=== PATIENT | male | born 1965 | race Caucasian/White ===

== ENCOUNTER 2018-02-10 06:56 | Observation (INO) | payer OTHER ==
[2018-02-10 08:08] LABS: ADD MAN DIFF? NO
[2018-02-10 08:12] LABS: WHITE BLOOD COUNT 7.9 10^3/ul (4.8-10.8)
[2018-02-10 08:12] LABS: BASOPHIL # 0.1 10^3/ul (0.0-0.1); BASOPHILS % 0.8 % (0.0-2.0); EOSINOPHILS # 0.2 10^3/ul (0.0-0.5); EOSINOPHILS % 2.7 % (0.0-7.0); HEMOGLOBIN 11.8 g/dl (14.0-18.0); LYMPHOCYTES # 3.1 10^3/ul (0.8-2.9); LYMPHOCYTES % 38.5 % (15.0-51.0); MEAN CORPUSCULAR HEMOGLOBIN 29.7 pg (29.0-33.0); MEAN CORPUSCULAR HGB CONC 32.8 g/dl (32.0-37.0); MEAN CORPUSCULAR VOLUME 90.7 fl (82.0-101.0); MEAN PLATELET VOLUME 10.9 fl (7.4-10.4); MONOCYTE # 0.9 10^3/ul (0.3-0.9); MONOCYTES % 11.6 % (0.0-11.0); NEUTROPHIL # 3.7 10^3/ul (1.6-7.5); NEUTROPHILS % 46.3 % (39.0-77.0); PLATELET COUNT 169 10^3/UL (140-415); RED BLOOD COUNT 3.97 10^6/ul (4.70-6.10); RED CELL DISTRIBUTION WIDTH 12.9 % (11.5-14.5)
[2018-02-10 08:28] LABS: ANION GAP 20 (8-16); CARBON DIOXIDE 31 mmol/L (21-31); CHLORIDE 98 mmol/L (97-110); GLUCOSE 163 mg/dl (70-220)
[2018-02-10 08:35] LABS: BLOOD UREA NITROGEN 36 mg/dl (7-20); CALCIUM 9.1 mg/dl (8.4-10.2); CREATININE 7.76 mg/dl (0.61-1.24); POTASSIUM 4.9 mmol/L (3.5-5.1); SODIUM 144 mmol/L (135-144)
[2018-02-10 08:38] LABS: INR 0.97
[2018-02-10] MEDS ORDERED: VERAPAMIL 5 MG INJ (09:56)
[2018-02-10] MEDS ORDERED: HEPARIN 1000 UNITS/ML 10 ML INJ (09:56)
[2018-02-10] MEDS ORDERED: LIDOCAINE 1% (MDV) 20 ML INJ (09:56)
[2018-02-10] MEDS ORDERED: MIDAZOLAM 1 MG/ML 2 ML INJ (09:56)
[2018-02-10] MEDS ORDERED: FENTAnyl 50 MCG/ML VIAL (09:56)
[2018-02-10] MEDS ORDERED: IODIXANOL LOCM 100 ML BTL (09:56)
[2018-02-10] MEDS ORDERED: NITROGLYCERIN (IC) 100 MCG/ML INJ (09:57)
[2018-02-10] MEDS ORDERED: CLOPIDOGREL 300 MG TAB (10:31)
[2018-02-10] MEDS ORDERED: CLOPIDOGREL 75 MG TAB PO (11:30)
[2018-02-10] MEDS ORDERED: ACETAMINOPHEN 325 MG TAB PO (11:30)
[2018-02-10] MEDS ORDERED: ONDANSETRON 4 MG INJ IV (11:30)
[2018-02-10] MEDS ORDERED: DEXTROSE 50% 50 ML SYRINGE IV ×2 (13:00)
[2018-02-10] MEDS ORDERED: LOSARTAN 50 MG TAB PO (13:00)
[2018-02-10] MEDS ORDERED: GLUCOSE GEL 15 GRAM TUBE PO ×2 (13:00)
[2018-02-10] MEDS ORDERED: GLUCOSE GEL 15 GRAM TUBE BUCCAL (13:00)
[2018-02-10] MEDS ORDERED: LINAGLIPTIN 5 MG TABLET PO (13:00)
[2018-02-10] MEDS ORDERED: GLUCAGON 1 MG INJ IM (13:00)
[2018-02-10] MEDS: SEVELAMER 800 MG TAB PO (14:23)
[2018-02-10] MEDS: FUROSEMIDE 40 MG TAB PO (14:26)
[2018-02-10] MEDS: CALCIUM ACETATE 667 MG CAP PO (14:27)
[2018-02-10] MEDS: ASPIRIN 81 MG TAB PO (14:28)
[2018-02-10] MEDS: VITAMIN B COMPLEX/VIT C CAP PO (14:28)
[2018-02-10] MEDS: CLOPIDOGREL 75 MG TAB PO (14:30)
[2018-02-10] MEDS: INSULIN GLARGINE [LANtus] 3 ML PEN SC (14:47)
[2018-02-10] MEDS ORDERED: ATORVASTATIN 80 MG TAB PO (21:00)
== END 2018-02-10 19:17 | disposition home or self-care (01) ==
LOC: SDS 06:56 → REC 11:45
DX: T82.897A Other specified complication of cardiac prosthetic devices, implants and grafts, initial encounter (principal); I25.119 Atherosclerotic heart disease of native coronary artery with unspecified angina pectoris; Y83.8 Other surgical procedures as the cause of abnormal reaction of the patient, or of later complication, without mention of misadventure at the time of the procedure; Y92.89 Other specified places as the place of occurrence of the external cause
CPT/HCPCS: 80048; 82962; 85025; 85610; 85730; 92920; 93005; 93458

== ENCOUNTER 2018-03-24 14:41 | Inpatient (IN) | payer OTHER, MEDICARE ==
[2018-03-24] MEDS ORDERED: BIVALIRUDIN 250MG /NS 50 ML 50 ML IVPB (15:12)
[2018-03-24] MEDS ORDERED: FENTAnyl 50 MCG/ML VIAL (15:12)
[2018-03-24] MEDS ORDERED: LIDOCAINE 1% (MDV) 20 ML INJ ×2 (15:12→15:14)
[2018-03-24] MEDS ORDERED: NITROGLYCERIN (IC) 100 MCG/ML INJ (15:17)
[2018-03-24] MEDS ORDERED: IODIXANOL LOCM 100 ML BTL (15:21)
[2018-03-24] MEDS ORDERED: ONDANSETRON 4 MG INJ (15:21)
[2018-03-24] MEDS ORDERED: TICAGRELOR 90 MG TABLET (15:40)
[2018-03-24] MEDS ORDERED: ASPIRIN 325 MG TAB (15:41)
[2018-03-24] MEDS ORDERED: IOHEXOL 350MG/ML 50 ML BTL (16:15)
[2018-03-24] MEDS ORDERED: IODIXANOL LOCM 50 ML BTL (16:15)
[2018-03-24] MEDS ORDERED: DEXTROSE 50% 50 ML SYRINGE IV ×2 (18:00)
[2018-03-24] MEDS ORDERED: GLUCAGON 1 MG INJ IM (18:00)
[2018-03-24] MEDS ORDERED: GLUCOSE GEL 15 GRAM TUBE BUCCAL (18:00)
[2018-03-24] MEDS ORDERED: GLUCOSE GEL 15 GRAM TUBE PO ×2 (18:00)
[2018-03-24] MEDS ORDERED: NITROGLYCERIN (SL) 0.4 MG TAB SL (18:30)
[2018-03-24] MEDS ORDERED: morphine 2 MG INJ IV (18:30)
[2018-03-24 19:14] LABS: HAAIG REFLEX REFLEX FILED
[2018-03-24 20:06] LABS: HEPATITIS B SURFACE ANTIGEN NEGATIVE (NEGATIVE)
[2018-03-24 20:24] LABS: HEPATITIS B CORE ANTIBODY NEGATIVE (NEGATIVE); HEPATITIS C VIRAL ANTIBODY NEGATIVE (NEGATIVE)
[2018-03-24] MEDS: ATORVASTATIN 80 MG TAB PO (21:25)
[2018-03-24] MEDS: INSULIN ASPART [NOVOLOG] 3 ML PEN SC (21:54)
[2018-03-25] MEDS: ACCU-CHEK XX (02:00)
[2018-03-25 05:06] LABS: ADD MAN DIFF? NO; BASOPHILS % 0.4 % (0.0-2.0); EOSINOPHILS # 0.2 10^3/ul (0.0-0.5); EOSINOPHILS % 1.7 % (0.0-7.0); HEMATOCRIT 29.7 % (42.0-52.0); HEMOGLOBIN 9.5 g/dl (14.0-18.0); LYMPHOCYTES # 3.2 10^3/ul (0.8-2.9); MEAN CORPUSCULAR HEMOGLOBIN 29.7 pg (29.0-33.0); MEAN CORPUSCULAR VOLUME 92.8 fl (82.0-101.0); MEAN PLATELET VOLUME 10.5 fl (7.4-10.4); MONOCYTE # 1.4 10^3/ul (0.3-0.9); MONOCYTES % 14.7 % (0.0-11.0); NEUTROPHIL # 4.8 10^3/ul (1.6-7.5); PLATELET COUNT 165 10^3/UL (140-415); RED CELL DISTRIBUTION WIDTH 13.4 % (11.5-14.5)
[2018-03-25 05:06] LABS: WHITE BLOOD COUNT 9.6 10^3/ul (4.8-10.8)
[2018-03-25] MEDS: TICAGRELOR 90 MG TABLET PO (05:27)
[2018-03-25 05:30] LABS: PHOSPHORUS 7.7 mg/dl (2.5-4.9)
[2018-03-25 05:30] LABS: MAGNESIUM 2.3 mg/dl (1.7-2.5)
[2018-03-25 05:37] LABS: ANION GAP 17 (8-16); BLOOD UREA NITROGEN 56 mg/dl (7-20); CALCIUM 8.3 mg/dl (8.4-10.2); CARBON DIOXIDE 33 mmol/L (21-31); CHLORIDE 103 mmol/L (97-110); CHOL/HDL RATIO 4.4 RATIO; CHOLESTEROL 93 mg/dl (100-200); CREATININE 10.21 mg/dl (0.61-1.24); GLUCOSE 174 mg/dl (70-220); HDL CHOLESTEROL 21 mg/dl (28-71); LDL CHOLESTEROL,CALCULATED 28 mg/dl; POTASSIUM 4.8 mmol/L (3.5-5.1); SODIUM 148 mmol/L (135-144); TRIGLYCERIDES 218 mg/dl (0-149)
[2018-03-25] MEDS: INSULIN ASPART [NOVOLOG] 3 ML PEN SC ×4 (07:28→20:31)
[2018-03-25] MEDS: SEVELAMER CARBONATE 0.8 GM PKT PO ×3 (07:43→16:52)
[2018-03-25] MEDS: CALCIUM ACETATE 667 MG CAP PO ×5 (07:43→16:51)
[2018-03-25] MEDS: ASPIRIN (EC) 81 MG TAB PO (08:11)
[2018-03-25] MEDS: FISH OIL 1,000 MG CAP PO (08:11)
[2018-03-25] MEDS: LINAGLIPTIN 5 MG TABLET PO (09:45)
[2018-03-25] MEDS: VITAMIN B COMPLEX/VIT C CAP PO (09:46)
[2018-03-25] MEDS: LOSARTAN 50 MG TAB PO (09:46)
[2018-03-25] MEDS: INSULIN GLARGINE [LANtus] 3 ML PEN SC (09:50)
[2018-03-25] MEDS: SEVELAMER 800 MG TAB PO ×2 (10:52→16:51)
[2018-03-25] MEDS: CLOPIDOGREL 75 MG TAB PO (17:28)
[2018-03-25] MEDS: APIXABAN 5 MG TABLET PO (20:22)
[2018-03-25] MEDS: ATORVASTATIN 80 MG TAB PO (20:23)
[2018-03-26] MEDS: ACCU-CHEK XX (01:46)
[2018-03-26 05:05] LABS: ADD MAN DIFF? NO
[2018-03-26 05:12] LABS: BASOPHIL # 0.1 10^3/ul (0.0-0.1); BASOPHILS % 0.5 % (0.0-2.0); EOSINOPHILS # 0.2 10^3/ul (0.0-0.5); EOSINOPHILS % 2.4 % (0.0-7.0); HEMATOCRIT 29.9 % (42.0-52.0); HEMOGLOBIN 9.6 g/dl (14.0-18.0); LYMPHOCYTES # 3.2 10^3/ul (0.8-2.9); LYMPHOCYTES % 34.3 % (15.0-51.0); MEAN CORPUSCULAR HEMOGLOBIN 29.2 pg (29.0-33.0); MEAN CORPUSCULAR HGB CONC 32.1 g/dl (32.0-37.0); MEAN CORPUSCULAR VOLUME 90.9 fl (82.0-101.0); MEAN PLATELET VOLUME 10.9 fl (7.4-10.4); MONOCYTE # 1.5 10^3/ul (0.3-0.9); MONOCYTES % 16.1 % (0.0-11.0); NEUTROPHIL # 4.3 10^3/ul (1.6-7.5); NEUTROPHILS % 46.6 % (39.0-77.0); PLATELET COUNT 169 10^3/UL (140-415); RED BLOOD COUNT 3.29 10^6/ul (4.70-6.10); RED CELL DISTRIBUTION WIDTH 13.5 % (11.5-14.5)
[2018-03-26 05:12] LABS: WHITE BLOOD COUNT 9.2 10^3/ul (4.8-10.8)
[2018-03-26 05:46] LABS: ALANINE AMINOTRANSFERASE 22 IU/L (13-69); ALBUMIN 3.7 g/dl (3.3-4.9); ALBUMIN/GLOBULIN RATIO 0.97; ALKALINE PHOSPHATASE 93 IU/L (42-121); ANION GAP 19 (8-16); ASPARTATE AMINO TRANSFERASE 28 IU/L (15-46); BILIRUBIN,INDIRECT 0.3 mg/dl (0-1.1); BILIRUBIN,TOTAL 0.3 mg/dl (0.2-1.3); BLOOD UREA NITROGEN 46 mg/dl (7-20); CALCIUM 8.3 mg/dl (8.4-10.2); CARBON DIOXIDE 29 mmol/L (21-31); CHLORIDE 101 mmol/L (97-110); CREATININE 8.94 mg/dl (0.61-1.24); GLUCOSE 147 mg/dl (70-220); POTASSIUM 4.7 mmol/L (3.5-5.1); SODIUM 144 mmol/L (135-144); TOTAL PROTEIN 7.5 g/dl (6.1-8.1)
[2018-03-26 06:50] LABS: PHOSPHORUS 7.2 mg/dl (2.5-4.9)
[2018-03-26] MEDS: CALCIUM ACETATE 667 MG CAP PO ×2 (07:35→07:38)
[2018-03-26] MEDS: SEVELAMER 800 MG TAB PO (07:38)
[2018-03-26] MEDS: SEVELAMER CARBONATE 0.8 GM PKT PO (07:38)
[2018-03-26] MEDS: INSULIN ASPART [NOVOLOG] 3 ML PEN SC (07:42)
[2018-03-26] MEDS: CLOPIDOGREL 75 MG TAB PO (08:09)
[2018-03-26] MEDS: VITAMIN B COMPLEX/VIT C CAP PO (08:09)
[2018-03-26] MEDS: LINAGLIPTIN 5 MG TABLET PO (08:10)
[2018-03-26] MEDS: ASPIRIN (EC) 81 MG TAB PO (08:10)
[2018-03-26] MEDS: APIXABAN 5 MG TABLET PO (08:10)
[2018-03-26] MEDS: FISH OIL 1,000 MG CAP PO (08:10)
[2018-03-26] MEDS: LOSARTAN 50 MG TAB PO (08:10)
[2018-03-26] MEDS: INSULIN GLARGINE [LANtus] 3 ML PEN SC (08:21)
[2018-03-26] MEDS ORDERED: PROPOFOL 100 ML (10:37)
== END 2018-03-26 10:00 | disposition home or self-care (01) | DRG 246 ==
LOC: ICU 14:41
PROC: 4A023N7 Measurement of Cardiac Sampling and Pressure, Left Heart, Percutaneous Approach (ICD-10-PCS; principal; 2018-03-24 04:00)
PROC: 027034Z Dilation of Coronary Artery, One Artery with Drug-eluting Intraluminal Device, Percutaneous Approach (ICD-10-PCS; 2018-03-24 04:00)
PROC: B211YZZ Fluoroscopy of Multiple Coronary Arteries using Other Contrast (ICD-10-PCS; 2018-03-24 04:00)
PROC: B240ZZ3 Ultrasonography of Single Coronary Artery, Intravascular (ICD-10-PCS; 2018-03-24 04:00)
PROC: 5A1D70Z Performance of Urinary Filtration, Intermittent, Less than 6 Hours Per Day (ICD-10-PCS; 2018-03-24 15:08)
DX: T82.855A Stenosis of coronary artery stent, initial encounter (principal); I21.4 Non-ST elevation (NSTEMI) myocardial infarction; N18.6 End stage renal disease; I12.0 Hypertensive chronic kidney disease with stage 5 chronic kidney disease or end stage renal disease; Y84.0 Cardiac catheterization as the cause of abnormal reaction of the patient, or of later complication, without mention of misadventure at the time of the procedure; Y92.019 Unspecified place in single-family (private) house as the place of occurrence of the external cause; E11.22 Type 2 diabetes mellitus with diabetic chronic kidney disease; E11.319 Type 2 diabetes mellitus with unspecified diabetic retinopathy without macular edema; I25.10 Atherosclerotic heart disease of native coronary artery without angina pectoris; I48.0 Paroxysmal atrial fibrillation; E78.5 Hyperlipidemia, unspecified; Z99.2 Dependence on renal dialysis; I25.2 Old myocardial infarction; Z79.4 Long term (current) use of insulin; Z79.82 Long term (current) use of aspirin; Z79.02 Long term (current) use of antithrombotics/antiplatelets; Z95.5 Presence of coronary angioplasty implant and graft
CPT/HCPCS: 37252; 80048; 80053; 80061; 82962; 83735; 84100; 85025; 86704; 86709; 86803; 87340; 90935; 93005; 93458

== ENCOUNTER 2018-11-13 14:57 | Observation (INO) | payer MEDICARE, OTHER ==
[2018-11-13 15:14] LABS: ADD MAN DIFF? NO
[2018-11-13 15:17] LABS: BASOPHILS % 0.3 % (0.0-2.0); EOSINOPHILS % 0.1 % (0.0-7.0); HEMATOCRIT 35.7 % (42.0-52.0); HEMOGLOBIN 11.3 g/dl (14.0-18.0); LYMPHOCYTES # 1.4 10^3/ul (0.8-2.9); LYMPHOCYTES % 14.3 % (15.0-51.0); MEAN CORPUSCULAR HEMOGLOBIN 28.4 pg (29.0-33.0); MEAN CORPUSCULAR HGB CONC 31.7 g/dl (32.0-37.0); MEAN CORPUSCULAR VOLUME 89.7 fl (82.0-101.0); MEAN PLATELET VOLUME 10.7 fl (7.4-10.4); MONOCYTE # 0.2 10^3/ul (0.3-0.9); MONOCYTES % 1.7 % (0.0-11.0); NEUTROPHIL # 8.2 10^3/ul (1.6-7.5); NEUTROPHILS % 82.6 % (39.0-77.0); PLATELET COUNT 163 10^3/UL (140-415); RED BLOOD COUNT 3.98 10^6/ul (4.70-6.10); RED CELL DISTRIBUTION WIDTH 13.2 % (11.5-14.5)
[2018-11-13 15:37] LABS: ANION GAP 13 (5-13); BLOOD UREA NITROGEN 44 mg/dl (7-20); CALCIUM 9.1 mg/dl (8.4-10.2); CARBON DIOXIDE 30 mmol/L (21-31); CHLORIDE 93 mmol/L (97-110); CREATININE 8.82 mg/dl (0.61-1.24); Estimated GFR 6 mL/min (>60); GLUCOSE 395 mg/dl (70-220); SODIUM 136 mmol/L (135-144)
[2018-11-13 15:44] LABS: POTASSIUM 5.5 mmol/L (3.5-5.1)
[2018-11-13 15:48] LABS: TROPONIN-I 0.038 ng/ml (0.000-0.120)
[2018-11-13] MEDS ORDERED: ACETAMINOPHEN 325 MG TAB PO ×2 (17:00→19:00)
[2018-11-13] MEDS ORDERED: ONDANSETRON 4 MG INJ IV ×2 (17:00→19:00)
[2018-11-13] MEDS ORDERED: DOCUSATE SODIUM 100 MG CAP PO (19:00)
[2018-11-13] MEDS ORDERED: HYDROCODONE/APAP (5/325) TAB PO (19:00)
[2018-11-13] MEDS ORDERED: NITROGLYCERIN (SL) 0.4 MG TAB SL (19:00)
[2018-11-13] MEDS ORDERED: ZOLPIDEM 5 MG TAB PO (19:00)
[2018-11-13] MEDS ORDERED: morphine 4 MG/ML VIAL IV (19:00)
[2018-11-13] MEDS ORDERED: NACL 0.9% 3 ML SYG IV (19:00)
[2018-11-13] MEDS: HEPARIN 5,000 UNIT/1 ML VIAL SC (22:10)
[2018-11-14 00:18] LABS: CREATINE KINASE 125 IU/L (23-200)
[2018-11-14 00:29] LABS: CK INDEX 3.3
[2018-11-14 00:30] LABS: CK-MB 4.08 ng/ml (0.0-2.4)
[2018-11-14] MEDS: hydrALAzine 20 MG INJ IV ×2 (01:09→21:22)
[2018-11-14] MEDS: ACCU-CHEK XX ×4 (07:30→21:00)
[2018-11-14] MEDS: ISOSORBIDE MONONITRATE(SR)30 MG TAB PO (08:21)
[2018-11-14] MEDS: CALCIUM ACETATE 667 MG CAP PO ×3 (08:21→16:58)
[2018-11-14] MEDS: LOSARTAN 50 MG TAB PO (08:22)
[2018-11-14] MEDS: SEVELAMER CARBONATE 800 MG TABLET PO ×3 (08:22→16:58)
[2018-11-14] MEDS: FUROSEMIDE 40 MG TAB PO (08:22)
[2018-11-14] MEDS: CLOPIDOGREL 75 MG TAB PO (08:23)
[2018-11-14] MEDS: LANTHANUM 500 MG CHEW PO ×3 (08:23→16:58)
[2018-11-14] MEDS: HEPARIN 5,000 UNIT/1 ML VIAL SC (08:31)
[2018-11-14] MEDS: INSULIN GLARGINE [LANTus] (100 UNITS/ML) SYG SC ×3 (08:31→21:40)
[2018-11-14 08:36] LABS: ADD MAN DIFF? NO
[2018-11-14 08:43] LABS: BASOPHILS % 0.3 % (0.0-2.0); EOSINOPHILS % 0.2 % (0.0-7.0); HEMOGLOBIN 10.1 g/dl (14.0-18.0); LYMPHOCYTES % 25.4 % (15.0-51.0); MEAN CORPUSCULAR HEMOGLOBIN 28.6 pg (29.0-33.0); MEAN CORPUSCULAR HGB CONC 32.6 g/dl (32.0-37.0); MEAN CORPUSCULAR VOLUME 87.8 fl (82.0-101.0); MEAN PLATELET VOLUME 11.7 fl (7.4-10.4); MONOCYTE # 1.2 10^3/ul (0.3-0.9); MONOCYTES % 10.4 % (0.0-11.0); NEUTROPHIL # 7.4 10^3/ul (1.6-7.5); NEUTROPHILS % 63.4 % (39.0-77.0); PLATELET COUNT 151 10^3/UL (140-415); RED BLOOD COUNT 3.53 10^6/ul (4.70-6.10); RED CELL DISTRIBUTION WIDTH 13.6 % (11.5-14.5)
[2018-11-14 08:43] LABS: WHITE BLOOD COUNT 11.7 10^3/ul (4.8-10.8)
[2018-11-14 08:49] LABS: HEMOGLOBIN A1C 7.5 % (0-5.9)
[2018-11-14 09:07] LABS: CREATINE KINASE 104 IU/L (23-200)
[2018-11-14 09:11] LABS: ANION GAP 14 (5-13); BLOOD UREA NITROGEN 65 mg/dl (7-20); CALCIUM 8.8 mg/dl (8.4-10.2); CARBON DIOXIDE 27 mmol/L (21-31); CHLORIDE 94 mmol/L (97-110); CREATININE 9.94 mg/dl (0.61-1.24); Estimated GFR 5 mL/min (>60); GLUCOSE 195 mg/dl (70-220); MAGNESIUM 2.5 mg/dl (1.7-2.5); PHOSPHORUS 3.5 mg/dl (2.5-4.9); SODIUM 135 mmol/L (135-144)
[2018-11-14 09:15] LABS: POTASSIUM 5.8 mmol/L (3.5-5.1)
[2018-11-14 09:18] LABS: CK INDEX 3.6
[2018-11-14 09:21] LABS: CK-MB 3.76 ng/ml (0.0-2.4)
[2018-11-14 09:23] LABS: TROPONIN-I 0.961 ng/ml (0.000-0.120)
[2018-11-14] MEDS ORDERED: GLUCOSE GEL 15 GRAM TUBE BUCCAL (13:00)
[2018-11-14] MEDS ORDERED: GLUCOSE GEL 15 GRAM TUBE PO ×2 (13:00)
[2018-11-14] MEDS ORDERED: DEXTROSE 50% 50 ML SYRINGE IV ×2 (13:00)
[2018-11-14] MEDS ORDERED: GLUCAGON 1 MG INJ IM (13:00)
[2018-11-14] MEDS ORDERED: SOD CHLORIDE 0.9% 1,000 ML IV (14:02)
[2018-11-14] MEDS ORDERED: ALBUMIN HUMAN 25% 50 ML IV (14:30)
[2018-11-14] MEDS ORDERED: HEPARIN 1000 UNITS/ML 10 ML INJ HE (14:30)
[2018-11-14] MEDS: ASPIRIN 81 MG TAB PO (15:17)
[2018-11-14] MEDS: APIXABAN 5 MG TABLET PO ×2 (15:17→23:03)
[2018-11-14] MEDS: INSULIN ASPART [NOVOLOG] 3 ML PEN SC (17:04)
[2018-11-14 17:30] LABS: HEPATITIS B SURFACE ANTIGEN NEGATIVE (NEGATIVE)
[2018-11-14] MEDS ORDERED: INSULIN GLARGINE [LANTus] (100 UNITS/ML) SYG SC ×2 (21:00)
[2018-11-14] MEDS ORDERED: hydrALAzine 20 MG INJ (21:18)
== END 2018-11-15 06:45 | disposition home or self-care (01) ==
LOC: E/R 14:57 → TEL 16:38
DX: R07.9 Chest pain, unspecified (principal); I12.0 Hypertensive chronic kidney disease with stage 5 chronic kidney disease or end stage renal disease; N18.6 End stage renal disease; Z99.2 Dependence on renal dialysis; E11.9 Type 2 diabetes mellitus without complications; Z79.4 Long term (current) use of insulin; E66.9 Obesity, unspecified; Z68.31 Body mass index [BMI] 31.0-31.9, adult; D63.1 Anemia in chronic kidney disease
CPT/HCPCS: 36415; 71045; 80048; 82550; 82553; 82962; 83036; 83735; 84100; 84484; 85025; 87340; 90935; 93005; 93306; 99285-25; G0378

== ENCOUNTER 2018-11-30 06:17 | Day surgery (SDC) | payer OTHER, MEDICARE ==
[~2018-11-30 06:17] MED LIST: SOD CHLORIDE 0.9% 1,000 ML IV
[2018-11-30 07:07] LABS: ADD MAN DIFF? NO
[2018-11-30 07:16] LABS: WHITE BLOOD COUNT 10.5 10^3/ul (4.8-10.8)
[2018-11-30 07:16] LABS: BASOPHIL # 0.1 10^3/ul (0.0-0.1); BASOPHILS % 0.6 % (0.0-2.0); EOSINOPHILS # 0.2 10^3/ul (0.0-0.5); EOSINOPHILS % 2.2 % (0.0-7.0); HEMATOCRIT 34.4 % (42.0-52.0); HEMOGLOBIN 10.7 g/dl (14.0-18.0); LYMPHOCYTES # 3.6 10^3/ul (0.8-2.9); LYMPHOCYTES % 34.3 % (15.0-51.0); MEAN CORPUSCULAR HEMOGLOBIN 28.2 pg (29.0-33.0); MEAN CORPUSCULAR HGB CONC 31.1 g/dl (32.0-37.0); MEAN CORPUSCULAR VOLUME 90.8 fl (82.0-101.0); MEAN PLATELET VOLUME 10.7 fl (7.4-10.4); MONOCYTE # 1.4 10^3/ul (0.3-0.9); MONOCYTES % 12.8 % (0.0-11.0); NEUTROPHIL # 5.2 10^3/ul (1.6-7.5); NEUTROPHILS % 49.8 % (39.0-77.0); PLATELET COUNT 213 10^3/UL (140-415); RED BLOOD COUNT 3.79 10^6/ul (4.70-6.10); RED CELL DISTRIBUTION WIDTH 14.3 % (11.5-14.5)
[2018-11-30 07:37] LABS: INR 0.97
[2018-11-30 07:38] LABS: PARTIAL THROMBOPLASTIN TIME 33.6 Sec (23.0-35.0)
[2018-11-30 07:43] LABS: ALANINE AMINOTRANSFERASE 15 IU/L (13-69); ALBUMIN 4.1 g/dl (3.3-4.9); ALBUMIN/GLOBULIN RATIO 1.07; ALKALINE PHOSPHATASE 138 IU/L (42-121); ANION GAP 11 (5-13); ASPARTATE AMINO TRANSFERASE 20 IU/L (15-46); CALCIUM 9.4 mg/dl (8.4-10.2); CARBON DIOXIDE 34 mmol/L (21-31); CHLORIDE 95 mmol/L (97-110); Estimated GFR 5 mL/min (>60); GLUCOSE 115 mg/dl (70-220); POTASSIUM 4.3 mmol/L (3.5-5.1); SODIUM 140 mmol/L (135-144); TOTAL PROTEIN 7.9 g/dl (6.1-8.1)
[2018-11-30 07:56] LABS: BLOOD UREA NITROGEN 49 mg/dl (7-20); CREATININE 10.81 mg/dl (0.61-1.24)
[2018-11-30] MEDS ORDERED: LIDOCAINE 1% (MDV) 20 ML INJ (08:21)
[2018-11-30] MEDS ORDERED: IODIXANOL LOCM 100 ML BTL ×2 (08:21→09:46)
[2018-11-30] MEDS ORDERED: MIDAZOLAM 1 MG/ML 2 ML INJ (08:22)
[2018-11-30] MEDS ORDERED: FENTAnyl 50 MCG/ML VIAL (08:22)
[2018-11-30] MEDS ORDERED: hydrALAzine 20 MG INJ ×2 (08:37→14:59)
[2018-11-30] MEDS ORDERED: HEPARIN 1000 UNITS/ML 10 ML INJ (09:45)
[2018-11-30] MEDS ORDERED: NITROGLYCERIN (IC) 100 MCG/ML INJ (09:46)
[2018-11-30] MEDS ORDERED: IOHEXOL 350MG/ML 50 ML BTL (09:46)
[2018-11-30] MEDS ORDERED: ASPIRIN 325 MG TAB (10:08)
[2018-11-30] MEDS ORDERED: CLOPIDOGREL 300 MG TAB (10:09)
[2018-11-30] MEDS ORDERED: AL HYDROX/MG HYDROX/SIMETH 30 ML CUP PO (10:30)
[2018-11-30] MEDS ORDERED: morphine 2 MG INJ IV (10:30)
[2018-11-30] MEDS ORDERED: OXYCODONE/ACETAMINOPHEN (5/325) TAB PO (10:30)
[2018-11-30] MEDS ORDERED: ONDANSETRON 4 MG INJ IV (10:30)
[2018-11-30] MEDS ORDERED: ACETAMINOPHEN 325 MG TAB PO (10:30)
[2018-11-30] MEDS ORDERED: ATROPINE 1 MG/10 ML SYRINGE (14:52)
[2018-11-30] MEDS: hydrALAzine 20 MG INJ IV (15:40)
[2018-12-01] MEDS ORDERED: ASPIRIN (EC) 81 MG TAB PO (09:00)
[2018-12-01] MEDS ORDERED: CLOPIDOGREL 75 MG TAB PO (09:00)
== END 2018-11-30 21:15 | disposition home or self-care (01) ==
LOC: CCL 06:17 → SDS 06:17 → ICU 10:50
DX: I25.10 Atherosclerotic heart disease of native coronary artery without angina pectoris (principal)
CPT/HCPCS: 80053; 82962; 85025; 85610; 85730; 93005; 93458